=== PATIENT | male | born 1970 | race American Indian/Alaskan Native ===

== ENCOUNTER 2025-06-24 11:32 | Outpatient (CLI) | payer MEDICARE, SELFPAY | END 2025-06-24 11:33 | disposition home or self-care (01) | LOC: AMB 06-25 10:43 | PROVIDERS: Visit Provider Emergency Medicine | DX: R07.89 Other chest pain (principal) | CPT/HCPCS: A0425; A0427 ==

== ENCOUNTER 2025-06-24 11:59 | Inpatient (IN) | payer MEDICARE, SELFPAY ==
[2025-06-24] VITALS (26 sets, daily range): BP systolic 105–170; BP diastolic 68–102; PULSE 66–80; RESP 14–26; TEMP 36.5–36.8; O2SAT 87–99; BMI 27.8; BMI 27.9
--- NOTE | 2025-06-24 12:17 | ED.GENADULT ---
HPI - General Adult General Date Seen: 06/24/25 Chief complaint: Diabetic Related Problem Stated complaint: chest pain Time Seen by Provider: 06/24/25 12:09 History of Present Illness HPI narrative: 55-year-old male brought to the ER today by EMS with chest pain. Has been experiencing chest pain for 3 days since Tuesday. He also has diabetes but has not been able to afford his insulin so has not taken it in months. There are no records in the his [place] chart but he does have records through [facility]. According to those records he has a history of hypertension, coronary artery disease, hyperlipidemia, type 2 diabetes with diabetic polyneuropathy, I complications. Apparently has a history of hyperosmolar hyperglycemic state. He also has a history depression, mild intermittent asthma, and financial in security. Med list according to his [facility] chart includes NovoLog FlexPe sliding-scale Lantus 20 units q.h.s. Gabapentin 100 mg t.i.d. Glipizide 10 mg once daily Lisinopril 40 mg daily Metformin 2000 mg once daily Aspirin 81 mg daily Lexapro 10 mg daily It looks like he was seen in the [facility] clinic this morning by Dr. Fortune. Had presented to the clinic this morning with cough, chest tightness, dyspnea on exertion as well as headache, blurry vision, poor balance. According to notes has recently been evicted and living with a friend in [place]. No money and has not purchased insulin for several months. History from the patient is that he does not currently have any money. He has not been able to take his insulin for at least 2 months. It sounds like he does check his blood sugar sometimes and it was in excess of 500 about 4 5 days ago. He was recently evicted from his house so he has been staying with a friend here near [place]. He was at his friend's Ashleigh's house for the past couple of days and plans to stay there again tonight. Since Tuesday or Tuesday he has been sick with cough, shortness of breath, and chest tightness. He does not think he has had a fever. He does not know if the cough is productive of sputum or not. They went to the urgent care this morning and referred here to the ER. He does not have any swelling in his legs. No abdominal pain or vomiting. He denies headache. No known ill exposures. Related Data Home Medications ?Medication ?Instructions ?Recorded ?Confirmed aspirin 81 mg tablet,delayed 81 mg PO DAILY 06/24/25 06/24/25 release atorvastatin 40 mg tablet 40 mg PO QPM 06/24/25 06/24/25 escitalopram oxalate 10 mg tablet 10 mg PO QAM 06/24/25 06/24/25 gabapentin 100 mg capsule 100 mg PO 3XD 06/24/25 06/24/25 glipizide 10 mg tablet, extended 10 mg PO DAILY 06/24/25 06/24/25 release 24 hr insulin aspart U-100 100 unit/mL subcut 06/24/25 (3 mL) subcutaneous pen lisinopril 40 mg tablet 40 mg PO DAILY 06/24/25 06/24/25 metformin 500 mg tablet,extended 2,000 mg PO QPM 06/24/25 06/24/25 release 24 hr Allergies Allergy/AdvReac Type Severity Reaction Status Date / Time No Known Drug Allergies Allergy Verified 06/24/25 12:13 Exam Narrative: Exam Narrative: Constitutional: Appears well-developed and well-nourished. Alert. Conversant but somewhat poor historian. Looks sick and run down but not truly ?toxic? HENT: Head: Atraumatic. Nose: Nose normal. Mouth/Throat: Oral mucosa is clear but dry, not desiccated or cracked.. no trismus. Pharynx normal. Tonsils symmetric. No tonsillar enlargement, erythema, or exudate. Eyes: Conjunctivae normal. EOM normal. Pupils equal, round, and reactive to light. No scleral icterus. Neck: Normal range of motion. Neck supple. No tracheal deviation present. Cardiovascular: Normal rate, regular rhythm. No gallop. No friction rub. No murmur heard. Symmetric radial artery pulses Pulmonary/Chest: Effort normal. No stridor. No respiratory distress. No wheezes. Diminished in the right lung field, but no definite rales or rhonchi. No rales. No rhonchi . No tenderness. Abdominal: Soft. Bowel sounds normal. No distension. No mass. No tenderness. No rebound. No guarding. No HSM. Musculoskeletal: RUE: Normal range of motion. No tenderness. No deformity LUE: Normal range of motion. No tenderness. No deformity RLE: Normal range of motion. No edema. No tenderness. No deformity LLE: Normal range of motion. No edema. No tenderness. No deformity Neurological: Alert and oriented to person, place, and time. Normal strength. CN II-VII intact. No sensory deficit. GCS eye subscore is 4. GCS verbal subscore is 5. GCS motor subscore is 6. Normal coordination Skin: Skin is warm and dry. No rash noted. No pallor. Normal capillary refill. Psychiatric: Normal mood. Normal affect. Const: Vital Signs, click to edit/add: Vital Signs - 24 hr 06/24/25 12:06 06/24/25 12:33 06/24/25 12:45 Temperature 97.9 F Pulse Rate 75 73 Pulse Rate [Right Pulse Oximeter] 76 Respiratory Rate 18 Blood Pressure Blood Pressure [Ri ght Upper Arm] 170/100 H Pulse Oximetry 98 97 96 Oxygen Delivery Me thod Room Air 06/24/25 13:15 06/24/25 13:28 06/24/25 13:30 Temperature Pulse Rate 74 73 71 Pulse Rate [Right Pulse Oximeter] Respiratory Rate 20 Blood Pressure 132/84 Blood Pressure [Ri ght Upper Arm] Pulse Oximetry 98 96 95 Oxygen Delivery Me thod 06/24/25 13:42 06/24/25 13:45 06/24/25 14:00 Temperature Pulse Rate 69 72 70 Pulse Rate [Right Pulse Oximeter] Respiratory Rate 14 25 H Blood Pressure 131/79 Blood Pressure [Ri ght Upper Arm] Pulse Oximetry 92 91 91 Oxygen Delivery Me thod 06/24/25 14:02 06/24/25 14:15 06/24/25 14:22 Temperature Pulse Rate 72 69 69 Pulse Rate [Right Pulse Oximeter] Respiratory Rate 21 26 H Blood Pressure 143/87 H 125/79 Blood Pressure [Ri ght Upper Arm] Pulse Oximetry 93 93 91 Oxygen Delivery Me thod 06/24/25 14:30 06/24/25 14:47 Temperature Pulse Rate 67 Pulse Rate [Right Pulse Oximeter] Respiratory Rate 22 25 H Blood Pressure Blood Pressure [Ri ght Upper Arm] Pulse Oximetry 92 Oxygen Delivery Me thod Course Vital Signs Vital signs: Initial Vital Signs Temperature 97.9 F 06/24/25 12:06 Temperature Source Temporal Artery Scan 06/24/25 12:06 Pulse Rate 76 06/24/25 12:06 Pulse Rhythm Regular 06/24/25 12:06 Pulse Strength 3+ Normal 06/24/25 12:06 Respiratory Rate 18 06/24/25 12:06 Blood Pressure 170/100 H 06/24/25 12:06 Blood Pressure Mean 123 H 06/24/25 12:06 Blood Pressure Position Sitting 06/24/25 12:06 Pulse Oximetry 98 06/24/25 12:06 Oxygen Delivery Method Room Air 06/24/25 12:06 Vital Signs Temperature 97.9 F 06/24/25 12:06 Pulse Rate 76 06/24/25 12:06 Respiratory Rate 18 06/24/25 12:06 Blood Pressure 170/100 H 06/24/25 12:06 Pulse Oximetry 98 06/24/25 12:06 Oxygen Delivery Method Room Air 06/24/25 12:06 Temperature 97.9 F 06/24/25 12:06 Pulse Rate 67 06/24/25 14:30 Respiratory Rate 25 H 06/24/25 14:47 Blood Pressure 125/79 06/24/25 14:22 Pulse Oximetry 92 06/24/25 14:30 Oxygen Delivery Method Room Air 06/24/25 12:06 Medications Administered Medications: Generic Name Dose Route Start Last Admin Trade Name Frekrysten PRN Reason Stop Dose Admin Insulin Human Regular 10 unit 06/24/25 15:24 06/24/25 15:33 Insulin Regular, Human 100 Unit/Ml Vial SUBCUT 06/24/25 15:25 10 unit ONCE ONE Administration Discontinued Medications Generic Name Dose Route Start Last Admin Trade Name Clifton PRN Reason Stop Dose Admin Aspirin 324 mg 06/24/25 12:39 06/24/25 13:21 Aspirin 81 Mg Tab.Chew PO 06/24/25 12:40 324 mg ONCE ONE Administration Sodium Chloride 1,000 mls @ 1,000 mls/hr 06/24/25 12:30 06/24/25 14:36 0.9 % Sodium Chloride 1000 Ml IV 06/24/25 13:29 Infused .Q1H GUSTAVO Infusion Ceftriaxone Sodium 1 gm/ 100 mls @ 200 mls/hr 06/24/25 14:51 06/24/25 15:35 Sodium Chloride IVPB 06/24/25 14:52 Infused ONCE ONE Infusion Medical Decision Making MDM Narrative Medical decision making narrative: 1. Cardiac. Patient has had chest tightness and cough for the past few days. Differential would include acute coronary syndrome. EKG nonischemic and troponin negative. Based on the patient's overall presentation I am more suspicious that his chest pain is due to pulmonary etiologies than cardiac. History not really consistent with it unstable angina. Chest x-ray does not show signs of pulmonary edema. 2. Pulmonary. Patient has had a cough, chest tightness and trouble breathing for the past several days. No wheezing or bronchospasm. Consider possible PE with overall would be low risk. Screening D-dimer is normal so will hold off on CT PA for now. Chest x-ray does show obvious right upper lobe infiltrate which I think would correlate with a community-acquired pneumonia. Laboratory workup shows minimally elevated white count at 11.85 with 75% neutrophils. CRP is elevated at 17. Blood cultures are pending and patient is started on IV antibiotics for community-acquired pneumonia with Rocephin and azithromycin. Although he is feeling short of breath, oxygen sats are currently adequate on room air. 3. Infectious disease. Patient does have a right upper lobe pneumonia. He does have leukocytosis but no fever, tachycardia, hypotension. No clear sepsis physiology at this point. 4. Endocrine. Patient has a history of type 2 diabetic and is supposed to be on insulin for that but has not been able to afford or take his insulin for a couple of months. He does have significant hyperglycemia with a glucose of 639. Anion gap is normal. Bicarb is normal. Venous blood gas shows normal pH. No evidence for DKA. Initially He does seem a little bit drowsy and unclear if this could be related to hyperglycemic state or just dehydration for room prolonged hyperglycemia/pneumonia. After 1500 of crystalloid he is mental status is actually better and he is much more conversant. He received 10 units of subcu insulin here in the ER. Recheck glucose is pending at the time of this dictation. Consider possible you hyperglycemic nonketotic hyperosmolar state. Sugar is in excess of 600 any did have some nonfocal neurologic symptoms like dizziness. 5. Neuro. After the patient arrived was given a copy of [facility]. According to those notes they were worried about a potential left facial droop and a positive Romberg in the clinic. When I evaluate the patient he does not have a facial droop. When I discussed the clinics concern the patient she per sleep admits that he ?may have had some chew? in his cheek while he was in the clinic. At this point I do not think his symptoms are consistent with acute ischemic infarct or intracranial hemorrhage. Will monitor neuro symptoms in the hospital. It is potential that he if he had is having dizziness and unsteadiness it could be related to dehydration from hyperglycemia or even mild N KH SS. Discussed with hospitalist. She will admit for glucose monitoring, IV antibiotics Lab Data Labs: Lab Results 06/24/25 06/24/25 06/24/25 Range/Units 12:22 12:45 13:15 WBC 11.85 H (4.50-11.00) K/uL RBC 3.58 L (4.30-5.90) m/uL Hgb 10.4 L (13.5-17.5) gm/dL Hct 30.4 L (37.0-53.0) % MCV 85 (80-100) fL MCH 29 (26-34) pg MCHC 34 (32-36) gm/dL RDW Coeff of Christiano 12.5 (11.5-15.5) % Plt Count 288 (140-440) K/uL Neut % (Auto) 75.6 H (42.0-72.0) % Lymph % (Auto) 12.6 L (20-44) % [place] % (Auto) 6.8 (0.0-11.0) % Eos % (Auto) 4.3 (0.0-7.0) % Baso % (Auto) 0.2 (0.0-3.0) % Neut # (Auto) 9.00 H (1.7-7.0) K/uL Lymph # (Auto) 1.50 (0.90-2.90) K/uL [place] # (Auto) 0.80 (0.00-0.90) K/UL Eos # (Auto) 0.50 (0.00-0.50) K/uL Baso # (Auto) 0.00 (0.00-0.30) K/uL Abs Immat Gran (auto) 0.10 (0.00-0.30) K/uL Imm/Tot Granulo (auto) 0.5 % D-Dimer Quant (PE/DVT) 0.41 (0.00-0.50) ug/ml VBG pH 7.373 (7.32-7.43) VBG pCO2 44 (40-50) mmHG VBG pO2 42.3 (25-47) mmHG VBG HCO3 25 (21-28) mmol/L Sodium 131 L (135-149) mmol/L Potassium 4.5 (3.6-5.1) mmol/L Chloride 100 (96-114) mmol/L Carbon Dioxide 25 (20-32) mmol/L Anion Gap 6 L (7-15) mEq/L BUN 16 (7-30) mg/dL Creatinine 0.7 (0.5-1.5) mg/dL Estimated Creat Clear 116.43 Estimated GFR 107 ml/min Glucose 639 H* (60-115) mg/dL Lactate 1.7 (0.5-1.9) mmol/L Calcium 8.7 (8.4-10.6) mg/dL Magnesium 2.2 (1.5-2.6) mg/dL Troponin I 0.02 (0.01-0.04) ng/mL C-Reactive Protein 17.1 H (0.5-1.0) mg/dL NT-Pro-B Natriuret Pep 705 H (See Note) pg/mL Urine Color (Yellow) Urine Appearance (Clear) Urine pH (5.0-8.5) Ur Specific Starlight (1.000-1.030) Urine Protein (Negative) Urine Glucose (UA) (Negative) Urine Ketones (Negative) Urine Blood (Negative) Urine Nitrite (Negative) Urine Bilirubin (Negative) Urine Urobilinogen (0.2-1.0) Ur Leukocyte Esterase (Negative) Urine RBC (0-2) Urine WBC (0-5) Ur Squamous Epith Cells (None-Few) Urine Bacteria (None) Ethyl Alcohol < 0.01 (0.01-0.03) % SARS-CoV-2 (PCR) Negative SARS-CoV-2 (Negative) Influenza Type A (PCR) Negative PCR FLU A (Negative) Influenza Type B (PCR) Negative PCR FLU B (Negative) RSV (PCR) Negative PCR RSV (Negative) POC Glucose > 600 H* (60-115) mg/dl 06/24/25 Range/Units 14:40 WBC (4.50-11.00) K/uL RBC (4.30-5.90) m/uL Hgb (13.5-17.5) gm/dL Hct (37.0-53.0) % MCV (80-100) fL MCH (26-34) pg MCHC (32-36) gm/dL RDW Coeff of Christiano (11.5-15.5) % Plt Count (140-440) K/uL Neut % (Auto) (42.0-72.0) % Lymph % (Auto) (20-44) % [place] % (Auto) (0.0-11.0) % Eos % (Auto) (0.0-7.0) % Baso % (Auto) (0.0-3.0) % Neut # (Auto) (1.7-7.0) K/uL Lymph # (Auto) (0.90-2.90) K/uL [place] # (Auto) (0.00-0.90) K/UL Eos # (Auto) (0.00-0.50) K/uL Baso # (Auto) (0.00-0.30) K/uL Abs Immat Gran (auto) (0.00-0.30) K/uL Imm/Tot Granulo (auto) % D-Dimer Quant (PE/DVT) (0.00-0.50) ug/ml VBG pH (7.32-7.43) VBG pCO2 (40-50) mmHG VBG pO2 (25-47) mmHG VBG HCO3 (21-28) mmol/L Sodium (135-149) mmol/L Potassium (3.6-5.1) mmol/L Chloride (96-114) mmol/L Carbon Dioxide (20-32) mmol/L Anion Gap (7-15) mEq/L BUN (7-30) mg/dL Creatinine (0.5-1.5) mg/dL Estimated Creat Clear Estimated GFR ml/min Glucose (60-115) mg/dL Lactate (0.5-1.9) mmol/L Calcium (8.4-10.6) mg/dL Magnesium (1.5-2.6) mg/dL Troponin I (0.01-0.04) ng/mL C-Reactive Protein (0.5-1.0) mg/dL NT-Pro-B Natriuret Pep (See Note) pg/mL Urine Color Yellow (Yellow) Urine Appearance Clear (Clear) Urine pH 6.0 (5.0-8.5) Ur Specific Starlight <= 1.005 (1.000-1.030) Urine Protein Trace A (Negative) Urine Glucose (UA) 2+ A (Negative) Urine Ketones Negative (Negative) Urine Blood Negative (Negative) Urine Nitrite Negative (Negative) Urine Bilirubin Negative (Negative) Urine Urobilinogen 0.2 (0.2-1.0) Ur Leukocyte Esterase Negative (Negative) Urine RBC 0-2 (0-2) Urine WBC 0-2 (0-5) Ur Squamous Epith Cells Few (None-Few) Urine Bacteria Few A (None) Ethyl Alcohol (0.01-0.03) % SARS-CoV-2 (PCR) (Negative) Influenza Type A (PCR) (Negative) Influenza Type B (PCR) (Negative) RSV (PCR) (Negative) POC Glucose (60-115) mg/dl Imaging Data Chest x-ray: Attestation: I have reviewed the pertinent imaging results. My impression: Right upper lobe infiltrate Radiologist's impression: IMPRESSION: Right upper lobe consolidation, which may represent infection. ECG Data Attestation: I personally reviewed and interpreted this ECG as follows: Interpretation: Normal sinus rhythm. Rate 72 AK interval 180 Normal QRS axis. Low voltage QRS Nonspecific T-wave flattening throughout. No ST segment elevation or depression. No old EKGs available for comparison. QTC 384, QTC 420 Discharge Plan Discharge Clinical Impression: Pneumonia, Hyperglycemia Patient Disposition: Admitted As Observation Procedures ABG Interpretation ABG Results: 06/24/25 13:15 VBG pH 7.373 VBG pCO2 44 VBG pO2 42.3 VBG HCO3 25
--- NOTE | 2025-06-24 12:22 | CRLHL7_ITS ---
For Patients: As a result of the Cures Act, medical imaging exams and procedure reports are released immediately into your electronic medical record. You may view this report before your referring provider. If you have questions, please contact your health care provider. INDICATION: Cough TECHNIQUE: Chest 2 views. COMPARISON: None. FINDINGS: Cardiovascular and mediastinum: Heart size is normal. Unremarkable mediastinum. Lungs and pleural spaces: Right upper lobe consolidation. No pneumothorax or pleural effusion. Bones and soft tissues: No significant findings. IMPRESSION: Right upper lobe consolidation, which may represent infection. Dictated by Reena Holloway MD @ 06/24/2025 1:31:16 PM (Electronically Signed)
--- OUTSIDE RECORDS SUMMARY | 2025-06-24 13:01 | XMS_ITS | CCD ---
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
[2025-06-24 13:18] LABS: Glucose, Point-of-Care* > 600 mg/dl (60-115)
[2025-06-24] MEDS: ASPIRIN 81 MG TAB.CHEW 324 MG PO (13:21)
[2025-06-24 13:23] LABS: HCO3 VBG 25 mmol/L (21-28); PCO2 VBG 44 mmHG (40-50); PO2 VBG 42.3 mmHG (25-47); pH VBG 7.373 (7.32-7.43)
[2025-06-24 13:24] LABS: Lactate* 1.7 mmol/L (0.5-1.9)
[2025-06-24 13:33] LABS: Hematocrit 30.4 % (37.0-53.0); Hemoglobin* 10.4 gm/dL (13.5-17.5); Immature Granulocytes Pct Auto 0.5 %; Mean Corpuscular HGB Conc 34 gm/dL (32-36); Mean Corpuscular Hemoglobin 29 pg (26-34); Mean Corpuscular Volume 85 fL (80-100); RDW Coefficient of Variation % 12.5 % (11.5-15.5); Red Blood Count 3.58 m/uL (4.30-5.90); White Blood Count* 11.85 K/uL (4.50-11.00)
[2025-06-24 13:33] LABS: PCR FLU A Negative PCR FLU A (Negative); PCR FLU B Negative PCR FLU B (Negative); PCR RSV Negative PCR RSV (Negative); SARS PCR* Negative SARS-CoV-2 (Negative)
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
[2025-06-24 13:45] LABS: Immature Granulocytes Abs Auto 0.10 K/uL (0.00-0.30); Lymphocytes Absolute Auto 1.50 K/uL (0.90-2.90); Slide Review Reflex No
[2025-06-24 13:46] LABS: D Dimer Quantitative* 0.41 ug/ml (0.00-0.50)
[2025-06-24 14:01] LABS: Ethanol* < 0.01 % (0.01-0.03); NT Pro B Type NatriureticPept* 705 pg/mL (See Note)
[2025-06-24 14:05] LABS: Chloride* 100 mmol/L (96-114); Sodium* 131 mmol/L (135-149)
[2025-06-24 14:06] LABS: Potassium* 4.5 mmol/L (3.6-5.1)
[2025-06-24 14:08] LABS: Blood Urea Nitrogen* 16 mg/dL (7-30); Creatinine* 0.7 mg/dL (0.5-1.5); Est. Creatinine Clearance* 116.43; Estimated Glomerular Filt Rate 107 ml/min
[2025-06-24 14:09] LABS: Anion Gap 6 mEq/L (7-15); Calcium* 8.7 mg/dL (8.4-10.6); Carbon Dioxide* 25 mmol/L (20-32)
[2025-06-24 14:22] LABS: Glucose* 639 mg/dL (60-115)
--- OUTSIDE RECORDS SUMMARY | 2025-06-24 14:34 | XMS_ITS | CCD ---
Author Organization Unknown Care Team Providers Care Photo Specialist Name Role Phone Photographic Equipment Inspector, [place] Primary Care Provider Unava ilable Unavailable Chronic Care Management Unavaila ble Summary Purpose DataExchange Insurance Providers Payer name Policy type / Coverage type Covered libertarian ID Effective Begin Date Effective End Date [facility] Commercial Insurance [id number] Unkn own Family History Family History data not found Medication Administered No Medication Administered data Reason For Visit No Reason For Visit data
--- OUTSIDE RECORDS SUMMARY | 2025-06-24 14:34 | XMS_ITS | CCD ---
Author Organization Unknown Care Team Providers Care Welding Machine Operator Name Role Phone Supervisor [employer] Making, [place] Primary Care Provider Unava ilable Unavailable Chronic Care Management Unavaila ble Summary Purpose DataExchange Insurance Providers Payer name Policy type / Coverage type Covered green party ID Effective Begin Date Effective End Date [facility] Commercial Insurance [id number] Unkn own Family History Family History data not found Medication Administered No Medication Administered data Reason For Visit No Reason For Visit data
[2025-06-24 14:59] LABS: Appearance Urine Clear (Clear)
[2025-06-24] MEDS: cefTRIAXone 1 GM in 0.9 % SODIUM CHLORIDE Mini-bag 100 ML IVPB (15:01)
[2025-06-24] MEDS: INSULIN REGULAR, HUMAN 100 UNIT/ML VIAL 10 UNIT SUBCUT (15:33)
--- NOTE | 2025-06-24 15:43 | RESP.RT ---
checked on Pt. in ED RA spo2 93% (noted his hemoglobin) BBS pulm effect regular, easy, not labored. Clear. RR 19. Pt was resting, did not answer my questions. will monitor as needed.
--- NOTE | 2025-06-24 15:48 | RESP.RT ---
Pts VBG on RA 7.37/44/42.3/25 Hgb 10.4 No wheezing, Rhonchi or Crackles at this time.
[2025-06-24] MEDS: MORPHINE 4 MG/ML INJ IVP (15:51)
[2025-06-24] MEDS: AZITHROMYCIN 500 MG in 0.9 % SODIUM CHLORIDE 250 ml 250 ML 255 MG IVPB (15:52)
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
[2025-06-24] MEDS: IPRAT-ALBUT 0.5-2.5 MG/3 ML NEB 1 NEB IH ×2 (17:15→22:41)
[2025-06-24] MEDS: LIDOCAINE 5% PATCH 1 PATCH TRANSDERMA (18:20)
[2025-06-24] MEDS: INSULIN ASPART 100 UNIT/ML SUBCUT ×2 (18:20→21:06)
--- NOTE | 2025-06-24 18:54 | PC.NURSE ---
End of Shift: admitted to med surg at 1615. Pleasant and cooperative, A&O. VSS, afebrile. SpO2 maintained above 90% on RA. Pt reports pain in his chest, and SOB at rest this shift, MD aware. Lidocaine patch applied to left chest. 1A. Tolerating diabetic diet.
[2025-06-24 18:56] LABS: Cannabinoid Screen Urine Negative (Negative); Methamphetamines Screen Urine POSITIVE (Negative); Tricyclic Antidepressant Urine Negative (Negative)
[2025-06-24] MEDS: ATORVASTATIN CALCIUM 40 MG TABLET PO (20:35)
[2025-06-24] MEDS: GABAPENTIN 100 MG CAPSULE PO (20:35)
[2025-06-24] MEDS: ENOXAPARIN 40 MG/0.4 ML INJ SUBCUT (20:35)
[2025-06-24] MEDS: ACETAMINOPHEN 500 MG TABLET 1000 MG PO (21:07)
[2025-06-24] MEDS: BENZOCAINE/MENTHOL 1 EACH LOZENGE MUCOUS MEM (21:08)
[2025-06-24] MEDS: SODIUM CHLORIDE 0.9 % (FLUSH) 10 ML SYRINGE 5 ML IVF (21:34)
[2025-06-25] VITALS (10 sets, daily range): BP systolic 106–130; BP diastolic 61–78; PULSE 71–84; RESP 18–20; TEMP 36.3–37.1; O2SAT 93–95; BMI 27.9
[2025-06-25] MEDS: IPRAT-ALBUT 0.5-2.5 MG/3 ML NEB 1 NEB IH ×3 (04:38→17:44)
--- NOTE | 2025-06-25 06:08 | PC.NURSE ---
Arrived to find the patient resting in bed, sleeping deeply. When awake they were found to be vitally stable but breathing abnormally deeply. Questioning the patient finds that they have been experiencing dizziness while at rest, ?like the room is spinning.? At the time of assessment, he was not feeling this way and it was not again reported. Vitally his blood pressure has been softer but not dramatically hypotensive. No dizziness reported when ambulating later in the night. Headache present at shift start but not well treated with Tylenol. It had gone by the morning. The patient slept well. Many scabs all over his body. Left big toe shows black tissue on one side. No signs of current leaking from the wound but his home sock had an outline of drainage where his big toe rests. Cough present with deep breathing or when awoken from sleep. Non-productive, but by morning it was a wet sounding cough.?Lung sounds are dry. Able to ambulate without assistance but status remains stand by for safety while he recovers. Telemetry shows a normal sinus rhythm. Blood sugars have remained elevated but are on the decline. By end of shift, the patient was presenting as one recovering?well?and as vitally stable.?
[2025-06-25 06:52] LABS: Hematocrit 35.0 % (37.0-53.0); Hemoglobin* 11.9 gm/dL (13.5-17.5); Immature Granulocytes Abs Auto 0.06 K/uL (0.00-0.30); Immature Granulocytes Pct Auto 0.6 %; Mean Corpuscular HGB Conc 34 gm/dL (32-36); Mean Corpuscular Hemoglobin 29 pg (26-34); Mean Corpuscular Volume 85 fL (80-100); RDW Coefficient of Variation % 12.6 % (11.5-15.5); Red Blood Count 4.13 m/uL (4.30-5.90); White Blood Count* 10.71 K/uL (4.50-11.00)
[2025-06-25 07:01] LABS: Lymphocytes Absolute Auto 1.30 K/uL (0.90-2.90); Slide Review Reflex No
[2025-06-25 07:10] LABS: Chloride* 104 mmol/L (96-114); Potassium* 3.9 mmol/L (3.6-5.1); Sodium* 136 mmol/L (135-149)
[2025-06-25 07:13] LABS: Blood Urea Nitrogen* 17 mg/dL (7-30); Creatinine* 0.7 mg/dL (0.5-1.5); Est. Creatinine Clearance* 116.43; Estimated Glomerular Filt Rate 107 ml/min
[2025-06-25 07:14] LABS: Anion Gap 5 mEq/L (7-15); Calcium* 8.2 mg/dL (8.4-10.6); Carbon Dioxide* 27 mmol/L (20-32); Glucose* 219 mg/dL (60-115)
[2025-06-25 08:07] LABS: Iron* 29 ug/dL (49-181)
[2025-06-25 08:17] LABS: Percent Iron Saturation 13 % (20-50); Total Iron Binding Capacity 220 ug/dL (261-462)
[2025-06-25] MEDS: METFORMIN ER 500 MG 2000 MG PO (08:26)
[2025-06-25] MEDS: AZITHROMYCIN 250 MG TABLET PO (08:26)
[2025-06-25] MEDS: GABAPENTIN 100 MG CAPSULE PO ×3 (08:26→21:06)
[2025-06-25] MEDS: ASPIRIN 81 MG TABLET EC PO (08:26)
[2025-06-25] MEDS: SODIUM CHLORIDE 0.9 % (FLUSH) 10 ML SYRINGE 5 ML IVF ×2 (08:27→21:07)
[2025-06-25 08:32] LABS: Vitamin B12* 880 pg/mL (243-894)
[2025-06-25] MEDS: ACETAMINOPHEN 500 MG TABLET 1000 MG PO (09:19)
[2025-06-25] MEDS: INSULIN ASPART 100 UNIT/ML SUBCUT ×4 (09:20→21:09)
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
--- NOTE | 2025-06-25 11:42 | NUTR.NU ---
Addendum entered and electronically signed by Aleksandra Mallory 06/26/25 09:59: RDN with nutrition screen for erythematous callous/early ulceration on medial aspect of left great toe. Per tar heater, patient ate 100% at dinner on 06/24/25 and 50-75% of meals recorded on 06/25/25. Discussed nutrition for wound healing. Reviewed protein sources and discussed including a protein source at all meals and snacks. Plan is for discharge today. Contact information provided and encouraged patient to contact with questions prn. Original Note: Nutrition: MD order for diabetic diet. 55 y/o admit with pneumonia and elevated A1C. Height 5' 9, weight 189 lbs, BMI 27.9. No chart weight history. Patient reports diabetes diagnosis in 2003. He also reports education in the past, stating the problem isn't the education, it's my refusing to eat appropriately. H&P includes disability and food insecurity due to medical expenses. Patient was open to education today. Today we discussed a balanced plate for people with diabetes. In this, discussed foods with carbohydrates and servings sizes related to them. Discussed a meal plan of approximately 4 carbohydrate servings per meal and 1 between meals in the morning and afternoon and 1 to 2 between in the evening. In addition, discussed balancing intake with non-carb choices including lean protein, healthy fat and vegetables for blood sugar management and satiety. Contact information provided. Encouraged patient to contact with follow up questions as needed.
[2025-06-25] MEDS: cefTRIAXone 2 GM in 0.9 % SODIUM CHLORIDE Mini-bag 100 ML IVPB (13:47)
--- NOTE | 2025-06-25 14:34 | PC.SOCIAL ---
Addendum entered and electronically signed by Anna Vasquez LCSW 06/25/25 15:20: KARL called [facility] to obtain a working number for the [facility] program. KARL spoke with Anthony Manuel who states that we can call him for referrals at [phone]. Anthony reports that someone will come out to see patient tomorrow between 10-11. Original Note: Discharge planning: SW met with patient to discuss resources and connections. Patient states that he has a gambling problem, but wants no support around this. Patient reports that he is currently living in his truck and typically stays near [place]. Patient reports that he previously worked with [facility] and is open to the [facility] as a resource. SW provided patient with the [facility] information. Patient discussed that he had concerns about his medical insurance and doesn't fully understand all that has happened with it since moving [facility]. SW discussed needing to have it transferred and patient thought that the people at [facility] would have done this for him. SW explained why they can't and provided information for [facility]'s social group worker and also discussed that [facility] would likely be able to assist with this. SW also discussed the other things that [facility] can assist with like housing and food. Patient asked about having someone help him with his finances, so SW brought information about [employer]. SW shared what she had heard about substance use and discussed [facility]'s [facility] program. Patient was open to meeting with them at the hospital. SW has called and left with [facility] and emailed them and is awaiting a response. Patient reports that his friend Ashleigh has his truck and she will be his discharge ride when ready. Ashleigh's number is [phone]. KARL discussed emergency contacts and patient requested his ex- be removed and Ashleigh's number be added. SW worked with registration to have this changed. SW to assist as needed.
--- NOTE | 2025-06-25 15:18 | REH.OT ---
OT consult order received. Pt sitting in recliner upon OT's arrival. Pt. somnolent and lethargic while OT was in his room. He answered PLOF questions without opening his eyes. He occasionally talked about unrelated topics with mumbling. Pt. preferring dark room. OT will reattempt when pt. able to participate in evaluation.
[2025-06-25] MEDS: LIDOCAINE 5% PATCH 1 PATCH TRANSDERMA (17:45)
--- NOTE | 2025-06-25 19:41 | PC.NURSE ---
Addendum entered by Esperanza Montano RN 06/25/25 19:51: This morning around 1100, RN noted that pt became diaphoretic, checked temp and was afebrile, pt stated he was comfortable. A few hours later, RN noted that pt was no longer diaphoretic, and became increasingly fidgety/twitching with his hands. Original Note: End of Shift: Patient pleasant and cooperative, A&O. VSS, afebrile. Patient has been diaphoretic throughout the shift. Pt reports pain in his chest and a headache this shift, managed with PRN medication and lidocaine patch, see MAR. Patient spent majority of the shift in the chair. Tolerating diabetic diet. SBA to SAMANTA.
[2025-06-25] MEDS: ATORVASTATIN CALCIUM 40 MG TABLET PO (21:06)
[2025-06-25] MEDS: ENOXAPARIN 40 MG/0.4 ML INJ SUBCUT (21:06)
[2025-06-26] MEDS: ACETAMINOPHEN 500 MG TABLET 1000 MG PO (03:30)
[2025-06-26] MEDS: ALBUTEROL SULFATE 2.5 MG/3 ML VIAL.NEB NEB (03:40)
[2025-06-26 03:43] VITALS: PULSE 73; RESP 20; O2SAT 95
[2025-06-26 06:18] LABS: HCO3 VBG 27 mmol/L (21-28); PCO2 VBG 40 mmHG (40-50); PO2 VBG 42.8 mmHG (25-47); pH VBG 7.437 (7.32-7.43)
[2025-06-26 06:27] LABS: Hematocrit 34.0 % (37.0-53.0); Hemoglobin* 11.4 gm/dL (13.5-17.5); Immature Granulocytes Pct Auto 0.7 %; Mean Corpuscular HGB Conc 34 gm/dL (32-36); Mean Corpuscular Hemoglobin 29 pg (26-34); Mean Corpuscular Volume 85 fL (80-100); RDW Coefficient of Variation % 12.7 % (11.5-15.5); Red Blood Count 3.98 m/uL (4.30-5.90); White Blood Count* 13.00 K/uL (4.50-11.00)
[2025-06-26 06:29] LABS: Immature Granulocytes Abs Auto 0.10 K/uL (0.00-0.30); Lymphocytes Absolute Auto 1.70 K/uL (0.90-2.90); Slide Review Reflex No
[2025-06-26 06:36] LABS: Chloride* 105 mmol/L (96-114); Potassium* 3.4 mmol/L (3.6-5.1); Sodium* 136 mmol/L (135-149)
[2025-06-26 06:39] LABS: Anion Gap 5 mEq/L (7-15); Blood Urea Nitrogen* 30 mg/dL (7-30); Calcium* 8.3 mg/dL (8.4-10.6); Carbon Dioxide* 26 mmol/L (20-32); Creatinine* 0.8 mg/dL (0.5-1.5); Est. Creatinine Clearance* 101.88; Estimated Glomerular Filt Rate 103 ml/min; Glucose* 192 mg/dL (60-115)
[2025-06-26 07:00] VITALS: PULSE 71
--- NOTE | 2025-06-26 07:24 | PC.NURSE ---
End of shift note [id number]: Pt A&Ox4 and has been resistive to most cares this shift including having 2300 VS assessed and temp and B/P check with 0300 VS. He has also refused to toilet when offered and encouraged this shift becoming irritable at staff stating, ?I don?t pee on your schedule? and refusing to have bladder scan checked despite education. He told this magazine writer that he peed, just before going to bed though other staff did not assist pt with toileting when asked. He has requested to sleep in his own short and refused to have TEDs removed when approached. When magazine writer was performing assessment to assess for orientation pt became irritable and asked, Why do you guys keep asking me these questions? [employer]quet reassured pt that this is part of standard nursing assessment. Pt noted to have an episode of dyspnea/coughing early this morning and was given PRN neb tx. O2 sat noted to be 93-95% on RA when coughing/dyspneic. Cough noted to be dry and nonproductive in nature. Tele in place with NSR noted. Call light within reach and bed alarm on for safety.
[2025-06-26] MEDS: INSULIN ASPART 100 UNIT/ML SUBCUT (10:33)
[2025-06-26] MEDS: METFORMIN ER 500 MG 2000 MG PO (10:36)
[2025-06-26] MEDS: AZITHROMYCIN 250 MG TABLET PO (10:37)
[2025-06-26] MEDS: GABAPENTIN 100 MG CAPSULE PO (10:37)
[2025-06-26] MEDS: ASPIRIN 81 MG TABLET EC PO (10:37)
[2025-06-26] MEDS: SODIUM CHLORIDE 0.9 % (FLUSH) 10 ML SYRINGE 5 ML IVF (10:38)
--- NOTE | 2025-06-26 11:35 | PC.SOCIAL ---
Discharge planning: KARL met with patient to ensure patient would still like to meet with someone from the [facility] team. Patient agreed to meet. KARL informed by Anthony that Bg from the team would be coming to meet with patient, KARL updated charge and patient's RN. Patient's RN informed SW that patient didn't want to meet with Bg due to his beliefs. KARL called Anthony and informed of this. Bg came and attempted as he was already here, but patient declined. KARL met with patient who expressed that his beliefs are that he wants to meet with individuals who are white or and born here. SW explained she wasn't aware of these beliefs otherwise would have set things up differently. Patient didn't want to meet with anyone else today. Patient does have the information for [employer] and the [facility] program to connect with on his own terms. Patient expressed while talking that he is . KARL informed that in his chart his race is listed as white and asked if he would like this changed. Patient states yes. KARL called admissions and asked that they change his race to . SW to assist if other needs arise.
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
--- NOTE | 2025-06-26 14:17 | PC.NURSE ---
Pt in room, refuses cares; asks to be left alone to sleep. Complains of headache, Tylenol given per MAR with a little relief. Pt agreed to speaking with couselor from [facility] then later stated he didn't want to. Encouraged pt to follow up with [facility] office upon DC, which he was agreeable to. IV DC'd, cath tip intact. Insulins labeled from Pharmacy and sent with pt. Prescriptions were sent to [facility] in [place]; pt understand to pickling solution maker today and follow up with scheduled PCP appointment. Instructions given verbally and in writing to pt and friend. Pt was open to instructions and follow up information. All questions answered. DC @ 1300.
[2025-06-26 21:19] LABS: Folate, Serum 12.5 ng/mL (>=5.9)
== END 2025-06-26 13:00 | disposition home or self-care (01) | DRG 194 ==
LOC: ED 14:59 → MEDSURG 16:08
PROVIDERS: Family Medicine; Admitting Provider Family Medicine; Emergency Provider Emergency Medicine; Visit Provider Family Medicine
DX: J18.9 Pneumonia, unspecified organism (principal); E87.1 Hypo-osmolality and hyponatremia; Z59.01 Sheltered homelessness; J45.21 Mild intermittent asthma with (acute) exacerbation; F32.1 Major depressive disorder, single episode, moderate; E11.65 Type 2 diabetes mellitus with hyperglycemia; M94.0 Chondrocostal junction syndrome [Tietze]; D64.9 Anemia, unspecified; Z59.86 Financial insecurity; R07.9 Chest pain, unspecified; Z59.41 Food insecurity; Z59.82 Transportation insecurity; E11.42 Type 2 diabetes mellitus with diabetic polyneuropathy; L97.519 Non-pressure chronic ulcer of other part of right foot with unspecified severity; S62.102S Fracture of unspecified carpal bone, left wrist, sequela; M25.532 Pain in left wrist; I25.10 Atherosclerotic heart disease of native coronary artery without angina pectoris; I11.9 Hypertensive heart disease without heart failure; I25.2 Old myocardial infarction; Z79.85 Long-term (current) use of injectable non-insulin antidiabetic drugs; Z79.4 Long term (current) use of insulin; Z79.82 Long term (current) use of aspirin; F15.11 Other stimulant abuse, in remission; F17.210 Nicotine dependence, cigarettes, uncomplicated; F17.220 Nicotine dependence, chewing tobacco, uncomplicated; E78.5 Hyperlipidemia, unspecified
CPT/HCPCS: 36415; 71046; 80048; 80306; 81001; 82077; 82607; 82728; 82746; 82803; 82947; 82962; 83036; 83540; 83550; 83605; 83735; 83880; 84484; 85025; 85379; 86140; 87040; 87086; 87631; 93005; 94640; 97116; 97162; 99284; 99285; A9270; J0456; J0696; J1650; J1815; J2270; J7030; J7050; J7512